=== PATIENT | female | born 1960 | race Caucasian/White ===

== ENCOUNTER 2025-08-18 18:49 | Emergency (ER) | payer MEDICARE, MEDICAID ==
[2025-08-18] MEDS ORDERED: ACET-910 PO (19:24)
[2025-08-18] MEDS ORDERED: ASPI81CH33 PO (19:26)
[2025-08-18] MEDS ORDERED: BENZ0.5T2 PO (19:26)
[2025-08-18] MEDS ORDERED: MELA3TAB49 PO (19:29)
[2025-08-18] MEDS ORDERED: FERR325T3 PO (19:29)
[2025-08-18] MEDS ORDERED: HALO5TAB33 PO ×2 (19:29)
[2025-08-18] MEDS ORDERED: SYNT100T PO (19:29)
[2025-08-18] MEDS ORDERED: ACET-897 PO (19:30)
[2025-08-18] MEDS ORDERED: WARF4TAB52 PO (19:31)
[2025-08-18 20:02] LABS: BASO # 0.0 10^3/uL (0.0-0.2); BASO % 0.2 % (0.0-1.0); EOS # 0.1 10^3/uL (0.0-0.5); EOS % 0.5 % (0.0-3.0); LYMPH # 0.7 10^3/uL (1.5-5.0); LYMPH % 5.8 % (24.0-44.0); MONO # 1.4 10^3/uL (0.0-0.8); MONO % 10.6 % (2.0-8.0); NEUTROPHILS # 10.2 10^3/uL (1.5-8.5); NEUTROPHILS % 78.9 % (36.0-66.0); PLATELET COUNT, AUTOMATED 651 10^3/uL (150-450)
[2025-08-18 20:25] LABS: INR 3.72
[2025-08-18 20:28] LABS: ETHYL ALCOHOL (ETHANOL) < 0.003 % (0.000-0.010)
[2025-08-18 20:29] LABS: SALICYLATE LEVEL < 3.0 MG/DL (<30)
[2025-08-18 20:43] LABS: ALT/SGPT 72 U/L (7.0-40); AST/SGOT 53 U/L (<34); CALCIUM LEVEL 9.4 MG/DL (8.3-10.6); CARBON DIOXIDE LEVEL 23 MMOL/L (20-31); CHLORIDE LEVEL 101 MMOL/L (98-107); CREATININE FOR GFR 1.08 MG/DL (0.55-1.30); GLOMERULAR FILTRATION RATE 57.0 (>45); POTASSIUM SERUM 4.0 MMOL/L (3.5-5.1); SODIUM LEVEL 135 MMOL/L (136-145)
[2025-08-18 21:10] LABS: KETONE, URINE AUTO RFX NEGATIVE (NEGATIVE); LEUKOCYTE ESTERASE UR AUTO RFX NEGATIVE (NEGATIVE); MUCUS, URINE RFX SMALL (NEGATIVE); NITRITE, URINE AUTO RFX NEGATIVE (NEGATIVE); RBC, URINE AUTO RFX 0 /HPF (0-3); SQUAM EPITHELIAL CELL UR AURFX 0 /HPF (0-6); WBC, URINE AUTO RFX 0 /HPF (0-3)
[2025-08-18 21:44] LABS: AMPHETAMINES LEVEL URINE NEGATIVE (NEGATIVE); BARBITURATES URINE NEGATIVE (NEGATIVE); BENZODIAZEPINES URINE NEGATIVE (NEGATIVE); CANNABINOIDS URINE NEGATIVE (NEGATIVE); COCAINE METABOLITE URINE NEGATIVE (NEGATIVE); METHADONE URINE NEGATIVE (NEGATIVE); OPIATES URINE NEGATIVE (NEGATIVE); PHENCYCLIDINE URINE NEGATIVE (NEGATIVE)
[2025-08-19 16:37] VITALS: BP 129/65; TEMP 99.7; O2SAT 100
== END 2025-08-19 16:39 | disposition home or self-care (01) ==
LOC: M ED 18:49
DX: F20.9 Schizophrenia, unspecified (principal); I48.91 Unspecified atrial fibrillation; I25.119 Atherosclerotic heart disease of native coronary artery with unspecified angina pectoris; J44.9 Chronic obstructive pulmonary disease, unspecified; E03.9 Hypothyroidism, unspecified; R78.5 Finding of other psychotropic drug in blood; N18.9 Chronic kidney disease, unspecified; C50.919 Malignant neoplasm of unspecified site of unspecified female breast; Z79.1 Long term (current) use of non-steroidal anti-inflammatories (NSAID); Z79.01 Long term (current) use of anticoagulants; Z79.899 Other long term (current) drug therapy